=== PATIENT | male | born 1985 | race American Indian/Alaskan Native ===

== ENCOUNTER 2019-01-04 22:51 | Emergency (ER) | payer MEDICAID ==
[2019-01-04 23:02] VITALS: BP 128/89; PULSE 70; RESP 20; TEMP 97.6; O2SAT 99
--- NOTE | 2019-01-05 06:04 | ED PDOC ---
HPI: SOB/CHF/COPD Time Seen by Provider: 01/05/19 05:50 Chief Complaint (Nursing): Respiratory Distress History Per: Patient History/Exam Limitations: no limitations Onset/Duration Of Symptoms: Hrs Current Symptoms Are (Timing): Gone Now Additional Complaint(s): 33 year old M with asthma presenting to ER requesting asthma pump. States that "the people threw them away" and states he gets short of breath when he doesn't have his rescue inhaler. Currently denies wheezing, chest pain, fevers, cough. Past Medical History Reviewed: Historical Data, Nursing Documentation, Vital Signs Vital Signs: Last Vital Signs Temp 97.6 F 01/04/19 22:56 Pulse 70 01/04/19 22:56 Resp 20 01/04/19 22:56 BP 128/89 01/04/19 22:56 Pulse Ox 99 01/04/19 22:56 - Medical History PMH: Asthma - Family History Family History: States: Unknown Family Hx - Immunization History Hx Tetanus Toxoid Vaccination: No Hx Influenza Vaccination: No Hx Pneumococcal Vaccination: No - Home Medications Home Medications: Ambulatory Orders Medication Instructions Recorded Ondansetron ODT [Zofran ODT] 1 odt PO BID PRN #6 odt 05/10/17 Albuterol Sulfate [Proair 90 mcg IH Q4 PRN #1 [email or web address] 01/05/19 Respiclick] - Allergies Allergies/Adverse Reactions: Allergies Allergy/AdvReac Type Severity Reaction Status Date / Time No Known Allergies Allergy Verified 05/10/17 10:53 Review of Systems ROS Statement: Except As Marked, All Systems Reviewed And Found Negative Respiratory: Positive for: Shortness of Breath Physical Exam - Reviewed Nursing Documentation Reviewed: Yes Vital Signs Reviewed: Yes - Physical Exam Appears: Positive for: Well, Non-toxic, No Acute Distress Head Exam: Positive for: ATRAUMATIC, NORMAL INSPECTION, NORMOCEPHALIC Skin: Positive for: Normal Color, Warm, DRY Eye Exam: Positive for: EOMI, Normal appearance, PERRL ENT: Positive for: Normal ENT Inspection Neck: Positive for: Normal, Painless ROM Cardiovascular/Chest: Positive for: Regular Rate, Rhythm Respiratory: Positive for: Normal Breath Sounds. Negative for: Decreased Breath Sounds, Accessory Muscle Use, Rales, Rhonchi, Stridor, Wheezing, Respiratory Distress, Plerual Rub Gastrointestinal/Abdominal: Positive for: Normal Exam, Soft Back: Positive for: Normal Inspection Extremity: Positive for: Normal ROM Neurological/Psych: Positive for: Awake, Alert, Normal Tone - ECG O2 Sat by Pulse Oximetry: 99 Pulse Ox Interpretation: Normal Medical Decision Making Medical Decision Making: Patient presenting for medication refill of albuterol No wheezing, normal vitals, very well appearing Suitable for outpatient followup Disposition - Clinical Impression Clinical Impression: Asthma - Patient ED Disposition Is Patient to be Admitted: No - Disposition Referrals: Britt Ponce MD [Family Provider] - Disposition: Routine/Home Disposition Time: 06:04 Condition: GOOD Prescriptions: Albuterol Sulfate [Proair Respiclick] 90 mcg IH Q4 PRN #1 [email or web address] PRN Reason: Wheezing Instructions: Inhalers
--- NOTE | 2019-01-05 18:42 | CARD ---
APPROVED REPORT Date of service: 01/04/2019 EKG Measurement Heart [id number] <Conclusion> Sinus rhythm with 1st degree AV block Early repolarization Otherwise normal ECG
== END 2019-01-05 06:30 | disposition home or self-care (01) ==
LOC: H.ER 22:51
DX: J45.909 Unspecified asthma, uncomplicated (principal)